=== PATIENT | female | born 1980 | race African-American/Black ===

== ENCOUNTER 2021-07-22 22:10 | Inpatient (IN) | payer OTHER ==
[~2021-07-22] VITALS: Ht 165.1 cm; Wt 120.4 kg
[2021-07-22 22:00] VITALS: BP 114/97
[2021-07-22 22:15] VITALS: BP 144/95
[2021-07-22 22:30] VITALS: BP 147/96
[2021-07-22 22:45] VITALS: BP 135/83
--- NOTE | 2021-07-22 23:00 | NUR ---
Patient admitted to room 113, placed on ICU monitors. Patient currently has insulin gtt going at 6 units. Unable to retrieve glucose via glucometer. Labs orders placed. Notified Dr. Eden of admit, orders received. Patient comfortable at this time.
[2021-07-22 23:28] LABS: CREATININE 2.1 mg/dL (0.6-1.0); GFR 31.4; MAGNESIUM 3.7 mg/dL (1.8-2.4); PHOSPHORUS 4.3 mg/dL (2.6-4.7); POTASSIUM 4.8 mmol/L (3.5-5.1)
[2021-07-22 23:30] LABS: CALCIUM 12.1 mg/dL (8.5-10.1)
[2021-07-23] VITALS (18 sets, daily range): BP systolic 118–171; BP diastolic 71–116
[2021-07-23] MEDS ORDERED: SODIUM PHOSPHATE 10 MMOL in IV NORMAL SALINE 100ML 250 ML IV PRN
[2021-07-23] MEDS ORDERED: SODIUM PHOSPHATE 20 MMOL in IV NORMAL SALINE 250ML 250 ML IV PRN
[2021-07-23] MEDS ORDERED: fentaNYL PF VIAL 100 MCG/2 ML VIAL IVP PRN
[2021-07-23] MEDS ORDERED: guaiFENesin DM 200MG/20MG 10 ML SYRUP PO PRN
[2021-07-23] MEDS ORDERED: INSULIN REGULAR VIAL 100 UNIT in IV NORMAL SALINE 100ML 100 ML IV PRN
[2021-07-23] MEDS ORDERED: IV NORMAL SALINE 1000ML BAG 1,000 ML IV SCH
[2021-07-23] MEDS ORDERED: SODIUM PHOSPHATE 40 MMOL in IV NORMAL SALINE 500ML BAG 500 ML IV PRN
[2021-07-23] MEDS ORDERED: traMADol 50 MG TABLET PO PRN
[2021-07-23] MEDS ORDERED: POTASSIUM CHLORIDE 10MEQ 100 ML IV PRN ×2
[2021-07-23] MEDS: POTASSIUM CHLORIDE 10MEQ 100 ML IV PRN ×2 (00:14→01:26)
[2021-07-23 05:08] LABS: CALCIUM 11.5 mg/dL (8.5-10.1); CREATININE 2.3 mg/dL (0.6-1.0); GFR 28.3; MAGNESIUM 3.4 mg/dL (1.8-2.4); PHOSPHORUS 1.9 mg/dL (2.6-4.7); POTASSIUM 3.6 mmol/L (3.5-5.1)
[2021-07-23 05:21] LABS: HEMATOCRIT 46.1 % (36.0-47.0); HEMOGLOBIN 15.4 g/dL (12.0-15.5); RED BLOOD COUNT 5.62 x10^6/uL (3.50-5.40); WHITE BLOOD COUNT 13.9 x10^3/uL (4.0-11.0)
[2021-07-23] MEDS ORDERED: IV 1/2 NORMAL SALINE 1,000 ML IV SCH ×2 (05:30)
[2021-07-23] MEDS: POTASSIUM PHOS,M-BASIC-D-BASIC 13.6 MMOL in IV NORMAL SALINE 250ML 250 ML IV SCH ×2 (05:36→10:00)
[2021-07-23] MEDS: HEPARIN for SUB-Q USE 5,000 UNIT/ML VIAL. SQ SCH ×3 (05:42→20:42)
[2021-07-23] MEDS ORDERED: INSULIN GLARGINE SYRINGE. SQ ONE (07:00)
[2021-07-23] MEDS ORDERED: INSULIN LISPRO 300 UNITS/3 ML VIAL. SQ ONE ×4 (07:00→20:30)
[2021-07-23] MEDS ORDERED: ONDANSETRON PF 4 MG/2 ML VIAL. IVP PRN ×2 (07:45)
[2021-07-23] MEDS ORDERED: MAG HYDROX/ALUMINUM HYD/SIMETH 30 ML ORAL.SUSP PO PRN (07:45)
[2021-07-23] MEDS ORDERED: IV DEXTROSE 5% 250 ML BAG. IV PRN (07:45)
[2021-07-23] MEDS ORDERED: 0.9 % SODIUM CHLORIDE 10 ML DISP.SYRIN. IV PRN (07:45)
[2021-07-23] MEDS ORDERED: DEXTROSE 50% 25 GM / 50ML DISP.SYRIN. IV PRN (07:45)
[2021-07-23] MEDS ORDERED: CALCIUM CARBONATE 500 MG TAB.CHEW PO PRN (07:45)
[2021-07-23] MEDS ORDERED: ACETAMINOPHEN 325 MG TABLET. PO PRN ×2 (07:45)
[2021-07-23] MEDS ORDERED: HYDROcodone/APAP 5/325MG 1 TAB TABLET PO PRN (07:45)
[2021-07-23] MEDS ORDERED: ZOLPIDEM 5 MG TABLET. PO PRN (07:45)
[2021-07-23] MEDS ORDERED: MAGNESIUM HYDROXIDE 2,400 MG/30 ML ORAL.SUSP. PO PRN (07:45)
--- NOTE | 2021-07-23 07:46 | PDOC1 ---
History and Physical Date of Admission Date of Admission DATE: 07/23/21 TIME: 07:38 Identification/Chief Complaint Chief Complaint Elevated blood sugar Source Source: Patient History of Present Illness History of Present Illness Patient is a 40-year-old female with no stated past medical history who presents to the ED as a transfer from [facility] due to DKA. She reports nausea yesterday with an episode of vomiting. When she checked her blood sugar at her parents house their home glucometer read high, so she presented to [facility] ED. At [facility] ED her blood sugar was 1617. She was placed on insulin drip and transferred to [facility] for higher level of care. At [facility] her labs showed WBC 10.6, hemoglobin 15.6, hematocrit 50.4, potassium 7.0, sodium 128, BUN 22, creatinine 2.1, anion gap 16. Now at [facility] in the ICU CBG is now 359, BUN 24, creatinine 2.3. Will admit patient for further medical management. Past Medical History Past Medical History Reviewed with patient but no stated past medical history Past Surgical History Past Surgical History: No pertinent history Family History Family History: Cancer, Diabetes, Hypertension Social History Smoke: No ALCOHOL: rare Drugs: None Current Medications Current Medications Current Medications Sodium Chloride 1,000 ml @ 500 mls/hr Q2H IV Last administered on 07/22/21at 23:54; Start 07/23/21 at 00:00; Stop 07/23/21 at 01:59; Status DC Sodium Chloride 1,000 ml @ 250 mls/hr Q4H IV Last administered on 07/23/21at 01:56; Start 07/23/21 at 00:00; Stop 07/23/21 at 05:20; Status DC Insulin Human Regular 100 unit/ Sodium Chloride 101 ml @ 0 mls/hr CONT PRN PRN IV PER PROTOCOL Last administered on 07/23/21at 02:19; Start 07/23/21 at 00:00 Potassium Chloride/Water 100 ml @ 100 mls/hr PRN Q1HR PRN IV SEE COMMENTS Last administered on 07/23/21at 01:26; Start 07/23/21 at 00:00 Potassium Chloride/Water 100 ml @ 100 mls/hr PRN Q1HR PRN IV SEE COMMENTS; Start 07/23/21 at 00:00 Potassium Chloride/Water 100 ml @ 100 mls/hr PRN Q1HR PRN IV SEE COMMENTS; Start 07/23/21 at 00:00 Magnesium Sulfate 100 ml @ 25 mls/hr DAILY IV ; Start 07/23/21 at 09:00; Stop 07/26/21 at 08:59 Sodium Phosphate 40 mmol/Sodium Chloride 513.3333 ml @ 83.3 mls/hr 1X PRN PRN IV SEE COMMENTS; Start 07/23/21 at 00:00 Sodium Phosphate 20 mmol/Sodium Chloride 256.6667 ml @ 62.5 mls/hr 1X PRN PRN IV SEE COMMENTS; Start 07/23/21 at 00:00 Sodium Phosphate 10 mmol/Sodium Chloride 253.3333 ml @ 25 mls/hr 1X PRN PRN IV SEE COMMENTS; Start 07/23/21 at 00:00 Acetaminophen (Tylenol) 650 mg PRN Q6HRS PRN PO MILD PAIN / TEMP > 100.3'F; Start 07/23/21 at 00:00 Ondansetron HCl (Zofran) 4 mg PRN Q4HRS PRN IVP NAUSEA/VOMITING 1ST CHOICE; Start 07/23/21 at 00:00 Tramadol HCl (Ultram) 50 mg PRN Q6HRS PRN PO MODERATE PAIN 4-6; Start 07/23/21 at 00:00 Fentanyl Citrate (Fentanyl 2ml Vial) 25 mcg PRN Q3HRS PRN IVP SEVERE PAIN 7-10; Start 07/23/21 at 00:00 Heparin Sodium (Porcine) (Heparin Sodium) 5,000 unit Q8HRS SQ Last administered on 07/23/21at 05:42; Start 07/23/21 at 06:00 Guaifenesin (Robitussin Dm) 10 ml PRN Q6HRS PRN PO COUGH; Start 07/23/21 at 00:00 Sodium Chloride 1,000 ml @ 250 mls/hr Q4H IV Last administered on 07/23/21at 05:31; Start 07/23/21 at 05:30 Potassium Phosphate 13.6 mmol/Sodium Chloride 254.5333 ml @ 62.5 mls/hr Q4H IV Last administered on 07/23/21at 05:36; Start 07/23/21 at 06:00; Stop 07/23/21 at 13:59 Insulin Glargine (Lantus Syringe) 25 unit 1X ONCE SQ Last administered on 07/23/21at 06:42; Start 07/23/21 at 07:00; Stop 07/23/21 at 07:01; Status DC Insulin Human Lispro (HumaLOG) 17 units 1X ONCE SQ ; Start 07/23/21 at 07:00; Stop 07/23/21 at 07:01; Status DC Allergies Allergies: Coded Allergies: No Known Drug Allergies (Unverified , 07/22/21) ROS Review of System GENERAL: No history of weight change, weakness or fevers. SKIN: No bruising, hair changes or rashes. EYES: No blurred, double or loss of vision. NOSE AND THROAT: No history of nosebleeds, hoarseness or sore throat. HEART: Denies chest pain, denies palpitations. LUNGS: Denies cough, hemoptysis, wheezing or shortness of breath. GASTROINTESTINAL: Nausea and vomiting. Denies abdominal pain. GENITOURINARY: Denies dysuria, frequency, urgency, hematuria. NEUROLOGIC: Denies history of numbness, tingling, tremor or weakness. PSYCHIATRIC: Denies anxiety, denies depression. ENDOCRINE: No history of heat or cold intolerance, polyuria or polydipsia. EXTREMITIES: Denies muscle weakness, joint pain, pain on walking or stiffness. Physical Exam Physical Exam General: Alert, Oriented X3, Cooperative, No acute distress. Morbidly obese. HEENT: PERRLA, EOMI Lungs: Clear to auscultation, Normal air movement Heart: Tachycardic. No murmurs Cardiovascular: S1, S2 Abdomen: Normal bowel sounds, Soft, No tenderness Extremities: No clubbing, No cyanosis Skin: No rashes, No significant lesion Neuro: Normal speech, Normal tone, Sensation intact Psych/Mental Status: Mental status NL, Mood NL Vitals Vitals Vital Signs Date Time Temp Pulse Resp B/P (MAP) Pulse Ox O2 Delivery O2 Flow Rate FiO2 07/23/21 06:00 102 20 137/94 (108) 98 Room Air 07/23/21 04:00 98.9 98.9 Labs Labs Laboratory Tests Test 07/22/21 23:05 07/23/21 00:55 07/23/21 02:30 07/23/21 04:10 Sodium Level 137 mmol/L (136-145) 150 mmol/L (136-145) Potassium Level 4.8 mmol/L (3.5-5.1) 3.6 mmol/L (3.5-5.1) Chloride Level 97 mmol/L (98-107) 110 mmol/L (98-107) Carbon Dioxide Level 26 mmol/L (21-32) 27 mmol/L (21-32) Anion Gap 14 (6-14) 13 (6-14) Blood Urea Nitrogen 23 mg/dL (7-20) 24 mg/dL (7-20) Creatinine 2.1 mg/dL (0.6-1.0) 2.3 mg/dL (0.6-1.0) Estimated GFR (Cockcroft-Gault) 31.4 28.3 Glucose Level 1154 mg/dL (70-99) 943 mg/dL (70-99) 727 mg/dL (70-99) 587 mg/dL (70-99) Calcium Level 12.1 mg/dL (8.5-10.1) 11.5 mg/dL (8.5-10.1) Phosphorus Level 4.3 mg/dL (2.6-4.7) 1.9 mg/dL (2.6-4.7) Magnesium Level 3.7 mg/dL (1.8-2.4) 3.4 mg/dL (1.8-2.4) White Blood Count 13.9 x10^3/uL (4.0-11.0) Red Blood Count 5.62 x10^6/uL (3.50-5.40) Hemoglobin 15.4 g/dL (12.0-15.5) Hematocrit 46.1 % (36.0-47.0) Mean Corpuscular Volume 82 fL (79-100) Mean Corpuscular Hemoglobin 28 pg (25-35) Mean Corpuscular Hemoglobin Concent 33 g/dL (31-37) Red Cell Distribution Width 13.0 % (11.5-14.5) Platelet Count 212 x10^3/uL (140-400) Test 07/23/21 06:15 07/23/21 07:19 Glucose (Fingerstick) 413 mg/dL (70-99) 359 mg/dL (70-99) Laboratory Tests Test 07/22/21 23:05 07/23/21 00:55 07/23/21 02:30 07/23/21 04:10 Sodium Level 137 mmol/L (136-145) 150 mmol/L (136-145) Potassium Level 4.8 mmol/L (3.5-5.1) 3.6 mmol/L (3.5-5.1) Chloride Level 97 mmol/L (98-107) 110 mmol/L (98-107) Carbon Dioxide Level 26 mmol/L (21-32) 27 mmol/L (21-32) Anion Gap 14 (6-14) 13 (6-14) Blood Urea Nitrogen 23 mg/dL (7-20) 24 mg/dL (7-20) Creatinine 2.1 mg/dL (0.6-1.0) 2.3 mg/dL (0.6-1.0) Estimated GFR (Cockcroft-Gault) 31.4 28.3 Glucose Level 1154 mg/dL (70-99) 943 mg/dL (70-99) 727 mg/dL (70-99) 587 mg/dL (70-99) Calcium Level 12.1 mg/dL (8.5-10.1) 11.5 mg/dL (8.5-10.1) Phosphorus Level 4.3 mg/dL (2.6-4.7) 1.9 mg/dL (2.6-4.7) Magnesium Level 3.7 mg/dL (1.8-2.4) 3.4 mg/dL (1.8-2.4) White Blood Count 13.9 x10^3/uL (4.0-11.0) Red Blood Count 5.62 x10^6/uL (3.50-5.40) Hemoglobin 15.4 g/dL (12.0-15.5) Hematocrit 46.1 % (36.0-47.0) Mean Corpuscular Volume 82 fL (79-100) Mean Corpuscular Hemoglobin 28 pg (25-35) Mean Corpuscular Hemoglobin Concent 33 g/dL (31-37) Red Cell Distribution Width 13.0 % (11.5-14.5) Platelet Count 212 x10^3/uL (140-400) Test 07/23/21 06:15 07/23/21 07:19 Glucose (Fingerstick) 413 mg/dL (70-99) 359 mg/dL (70-99) VTE Prophylaxis Ordered VTE Prophylaxis Devices: Yes VTE Pharmacological Prophylaxi: No Assessment/Plan Assessment/Plan DKA New onset type 2 diabetes LETY Plan: Patient's blood sugar is within normal range, no acidosis. She has been transitioned to subcutaneous insulin in the discharge of the ICU Hemoglobin A1c pending We will continue normal saline due to level of dehydration and LETY FEN - ADA diet PPX - SCD FULL CODE Dispo - inpatient for above Justifications for Admission Other Justification HENNY GUZMAN MD Jul 23, 2021 07:46
[2021-07-23] MEDS: INSULIN LISPRO 300 UNITS/3 ML VIAL. SQ SCH ×3 (08:00→17:06)
[2021-07-23] MEDS: ELECTROLYTE (ICU) PROTOCOL. MC SCH (09:00)
[2021-07-23] MEDS ORDERED: MAGNESIUM SULFATE 4GM 100 ML IV SCH (09:00)
--- NOTE | 2021-07-23 09:47 | RAD ---
US RENAL BILAT History: Acute kidney injury. Comparison: None. Technique: Sonographic examination of the kidneys and bladder. Findings: Right kidney: 10.0 cm length. No focal lesion, calculi or hydronephrosis. Left kidney: 9.6 cm length. No focal lesion, calculi or hydronephrosis. Bladder: No distal ureterectasis. No focal wall abnormality. Aorta/IVC: Visualized portions are unremarkable. Other: No ascites. Impression: 1. Unremarkable renal bladder ultrasound. Electronically signed by: Teo Garcia MD (07/23/2021 9:44 AM) [id number]
[2021-07-23] MEDS: IV 1/2 NORMAL SALINE 1,000 ML IV SCH ×2 (10:00→18:07)
[2021-07-23] MEDS ORDERED: INSULIN LISPRO 300 UNITS/3 ML VIAL. SQ SCH (12:45)
[2021-07-23 18:01] LABS: CALCIUM 9.5 mg/dL (8.5-10.1); CREATININE 1.7 mg/dL (0.6-1.0); GFR 40.1; MAGNESIUM 2.4 mg/dL (1.8-2.4); PHOSPHORUS 4.9 mg/dL (2.6-4.7); POTASSIUM 3.6 mmol/L (3.5-5.1)
[2021-07-23] MEDS ORDERED: LOSARTAN POTASSIUM 25 MG TABLET. PO SCH (20:30)
[2021-07-23] MEDS ORDERED: INSULIN GLARGINE SYRINGE. SQ SCH ×3 (21:00)
[2021-07-24] VITALS: BP 118/68
[2021-07-24 00:13] LABS: HEMOGLOBIN A1C 10.8 % (4.8-5.6)
[2021-07-24 04:00] VITALS: BP 128/81
[2021-07-24 05:27] LABS: BASO # 0.1 x10^3/uL (0.0-0.2); BASO % 1 % (0-3); EOS # 0.1 x10^3/uL (0.0-0.7); EOS % 1 % (0-3); HEMATOCRIT 39.4 % (36.0-47.0); HEMOGLOBIN 12.8 g/dL (12.0-15.5); LYMPH # 2.4 x10^3/uL (1.0-4.8); LYMPH % 25 % (24-48); MEAN CORPUSCULAR HEMOGLOBIN 27 pg (25-35); MEAN CORPUSCULAR HGB CONC 33 g/dL (31-37); MEAN CORPUSCULAR VOLUME 83 fL (79-100); MONO # 0.5 x10^3/uL (0.0-1.1); MONO % 6 % (0-9); NEUT # 6.3 x10^3/uL (1.8-7.7); NEUT % 68 % (31-73); PLATELET COUNT 170 x10^3/uL (140-400); RED BLOOD COUNT 4.74 x10^6/uL (3.50-5.40); WHITE BLOOD COUNT 9.4 x10^3/uL (4.0-11.0)
[2021-07-24 06:17] LABS: ALBUMIN 3.2 g/dL (3.4-5.0); ALBUMIN/GLOBULIN RATIO 0.9 (1.0-1.7); CALCIUM 8.7 mg/dL (8.5-10.1); CREATININE 1.2 mg/dL (0.6-1.0); GFR 59.9; POTASSIUM 3.4 mmol/L (3.5-5.1); TOTAL BILIRUBIN 1.6 mg/dL (0.2-1.0); TOTAL PROTEIN 6.7 g/dL (6.4-8.2)
[2021-07-24] MEDS: HEPARIN for SUB-Q USE 5,000 UNIT/ML VIAL. SQ SCH ×3 (06:27→20:40)
[2021-07-24] MEDS ORDERED: INSULIN LISPRO 300 UNITS/3 ML VIAL. SQ ONE (07:00)
[2021-07-24] MEDS ORDERED: POTASSIUM CHLORIDE 20 MEQ TABLET.ER. PO ONE (07:30)
[2021-07-24] MEDS: IV 1/2 NORMAL SALINE 1,000 ML IV SCH ×2 (07:41→13:40)
[2021-07-24] MEDS: INSULIN LISPRO 300 UNITS/3 ML VIAL. SQ SCH ×3 (07:43→16:53)
[2021-07-24 08:00] VITALS: BP 122/76
[2021-07-24] MEDS: ELECTROLYTE (ICU) PROTOCOL. MC SCH (09:00)
[2021-07-24] MEDS: INSULIN GLARGINE SYRINGE. SQ SCH ×2 (09:33→20:43)
[2021-07-24 11:52] VITALS: BP 115/84
--- NOTE | 2021-07-24 13:07 | PDOC ---
[employer] PROGRESS NOTE Date of Service DOS: DATE: 07/24/21 TIME: 13:05 Chief Complaint Chief Complaint DKA New onset type 2 diabetes LETY History of Present Illness History of Present Illness 07/24: Patient evaluated in ICU. Off insulin drip and she may downgrade. Kidney function improving; still with hyperglycemia. She has appointment with her new PCP on Wednesday. I imagine she will discharge tomorrow after better control of her insulin and continue with IV fluids to improve her kidneys. After discussion with patient, she would like to try to lower her A1c with oral medications and diet before switching to insulin if this is not effective. She will likely discharge on Metformin, Jardiance, atorvastatin, and losartan. Discussed with RN. Vitals/I&O Vitals/I&O: Vital Signs Date Time Temp Pulse Resp B/P (MAP) Pulse Ox O2 Delivery O2 Flow Rate FiO2 07/24/21 11:52 97.9 81 14 115/84 (94) 96 Room Air 97.9 I & O 07/23/21 07/23/21 07/24/21 15:00 23:00 07:00 Intake Total 3590 ml 2070 ml 1251 ml Output Total 0 ml 450 ml 400 ml Balance 3590 ml 1620 ml 851 ml Physical Exam General: Alert, Oriented X3, Cooperative, No acute distress Heart: Regular rate Lungs: Clear Abdomen: Normal bowel sounds, Soft Extremities: No clubbing, No cyanosis Skin: No rashes, No breakdown Labs Labs: Laboratory Tests Test 07/23/21 15:52 07/23/21 17:03 07/23/21 17:42 07/23/21 20:28 Glucose (Fingerstick) 310 mg/dL (70-99) 241 mg/dL (70-99) 203 mg/dL (70-99) Sodium Level 144 mmol/L (136-145) Potassium Level 3.6 mmol/L (3.5-5.1) Chloride Level 107 mmol/L (98-107) Carbon Dioxide Level 28 mmol/L (21-32) Anion Gap 9 (6-14) Blood Urea Nitrogen 24 mg/dL (7-20) Creatinine 1.7 mg/dL (0.6-1.0) Estimated GFR (Cockcroft-Gault) 40.1 Glucose Level 260 mg/dL (70-99) Calcium Level 9.5 mg/dL (8.5-10.1) Phosphorus Level 4.9 mg/dL (2.6-4.7) Magnesium Level 2.4 mg/dL (1.8-2.4) Test 07/24/21 04:47 07/24/21 05:00 07/24/21 11:42 Glucose (Fingerstick) 267 mg/dL (70-99) 301 mg/dL (70-99) White Blood Count 9.4 x10^3/uL (4.0-11.0) Red Blood Count 4.74 x10^6/uL (3.50-5.40) Hemoglobin 12.8 g/dL (12.0-15.5) Hematocrit 39.4 % (36.0-47.0) Mean Corpuscular Volume 83 fL (79-100) Mean Corpuscular Hemoglobin 27 pg (25-35) Mean Corpuscular Hemoglobin Concent 33 g/dL (31-37) Red Cell Distribution Width 13.0 % (11.5-14.5) Platelet Count 170 x10^3/uL (140-400) Neutrophils (%) (Auto) 68 % (31-73) Lymphocytes (%) (Auto) 25 % (24-48) Monocytes (%) (Auto) 6 % (0-9) Eosinophils (%) (Auto) 1 % (0-3) Basophils (%) (Auto) 1 % (0-3) Neutrophils # (Auto) 6.3 x10^3/uL (1.8-7.7) Lymphocytes # (Auto) 2.4 x10^3/uL (1.0-4.8) Monocytes # (Auto) 0.5 x10^3/uL (0.0-1.1) Eosinophils # (Auto) 0.1 x10^3/uL (0.0-0.7) Basophils # (Auto) 0.1 x10^3/uL (0.0-0.2) Sodium Level 144 mmol/L (136-145) Potassium Level 3.4 mmol/L (3.5-5.1) Chloride Level 105 mmol/L (98-107) Carbon Dioxide Level 29 mmol/L (21-32) Anion Gap 10 (6-14) Blood Urea Nitrogen 17 mg/dL (7-20) Creatinine 1.2 mg/dL (0.6-1.0) Estimated GFR (Cockcroft-Gault) 59.9 BUN/Creatinine Ratio 14 (6-20) Glucose Level 306 mg/dL (70-99) Calcium Level 8.7 mg/dL (8.5-10.1) Total Bilirubin 1.6 mg/dL (0.2-1.0) Aspartate Amino Transf (AST/SGOT) 44 U/L (15-37) Alanine Aminotransferase (ALT/SGPT) 34 U/L (14-59) Alkaline Phosphatase 69 U/L (46-116) Total Protein 6.7 g/dL (6.4-8.2) Albumin 3.2 g/dL (3.4-5.0) Albumin/Globulin Ratio 0.9 (1.0-1.7) Triglycerides Level 381 mg/dL (0-150) Cholesterol Level 252 mg/dL (0-200) LDL Cholesterol, Calculated 134 mg/dL (0-100) VLDL Cholesterol, Calculated 76 mg/dL (0-40) Non-HDL Cholesterol Calculated 210 mg/dL (0-129) HDL Cholesterol 42 mg/dL (40-60) Cholesterol/HDL Ratio 6.0 Comment Review of Relevant I have reviewed the following items nacho (where applicable) has been applied. Medications: Current Medications Medications (Trade) Dose Ordered Sig/Amadou Route PRN Reason Start Time Stop Time Status Last Admin Dose Admin Insulin Glargine (Lantus Syringe) 30 unit QHS SQ 07/23/21 21:00 07/24/21 07:27 DC 07/23/21 20:41 Losartan Potassium (Cozaar) 25 mg DAILY PO 07/23/21 20:30 07/24/21 07:28 DC 07/23/21 20:40 Insulin Human Lispro (HumaLOG) 10 units 1X ONCE SQ 07/23/21 20:30 07/23/21 20:31 DC 07/23/21 20:42 Insulin Human Lispro (HumaLOG) 5 units 1X ONCE SQ 07/24/21 07:00 07/24/21 07:01 DC 07/24/21 07:43 Potassium Chloride (Klor-Con) 40 meq 1X ONCE PO 07/24/21 07:30 07/24/21 07:33 DC 07/24/21 07:40 Insulin Glargine (Lantus Syringe) 30 unit BID SQ 07/24/21 09:00 07/24/21 09:33 Justifications for Admission Other Justification HENNY GUZMAN MD Jul 24, 2021 13:07
[2021-07-24 16:00] VITALS: BP 115/65
--- NOTE | 2021-07-24 16:39 | NUR ---
SS following for discharge planning. SS reviewed pt chart and discussed with RN. Pt is from home and is currently on room air. Self pay. Med [facility]ist following. Discharge plan is currently to home when medically ready for discharge. SS will continue to follow for discharge planning.
[2021-07-24 20:00] VITALS: BP 124/85
[2021-07-24] MEDS ORDERED: ATORVASTATIN CALCIUM 40 MG TABLET. PO SCH (21:00)
[2021-07-25] VITALS: BP 125/76
[2021-07-25 04:00] VITALS: BP 122/76
[2021-07-25] MEDS: IV 1/2 NORMAL SALINE 1,000 ML IV SCH (04:29)
[2021-07-25 05:06] LABS: CALCIUM 8.7 mg/dL (8.5-10.1); CREATININE 0.9 mg/dL (0.6-1.0); GFR 83.5; POTASSIUM 3.7 mmol/L (3.5-5.1)
[2021-07-25] MEDS: HEPARIN for SUB-Q USE 5,000 UNIT/ML VIAL. SQ SCH (06:20)
[2021-07-25 08:00] VITALS: BP 128/72
[2021-07-25] MEDS: INSULIN LISPRO 300 UNITS/3 ML VIAL. SQ SCH (09:15)
[2021-07-25] MEDS: INSULIN GLARGINE SYRINGE. SQ SCH (09:16)
[2021-07-25 12:00] VITALS: BP 132/76
--- NOTE | 2021-07-25 12:43 | PDOC ---
[employer] PROGRESS NOTE Date of Service DOS: DATE: 07/25/21 TIME: 12:42 Chief Complaint Chief Complaint DKA New onset type 2 diabetes LETY History of Present Illness History of Present Illness 07/24: Patient evaluated in ICU. Off insulin drip and she may downgrade. Kidney function improving; still with hyperglycemia. She has appointment with her new PCP on Wednesday. I imagine she will discharge tomorrow after better control of her insulin and continue with IV fluids to improve her kidneys. After discussion with patient, she would like to try to lower her A1c with oral medications and diet before switching to insulin if this is not effective. She will likely discharge on Metformin, Jardiance, atorvastatin, and losartan. Discussed with RN. 07/25: Patient seen in ICU. She has no complaints today. Kidney function back to baseline. She will discharge home today and follow-up with her PCP on Wednesday . Greater than 30 minutes spent managing the discharge of this patient. Vitals/I&O Vitals/I&O: Vital Signs Date Time Temp Pulse Resp B/P (MAP) Pulse Ox O2 Delivery O2 Flow Rate FiO2 07/25/21 04:00 98.8 72 16 122/76 (91) 95 Room Air 98.8 I & O 07/24/21 07/24/21 07/25/21 15:00 23:00 07:00 Intake Total 1200 ml 1992 ml 1666 ml Output Total 500 ml 450 ml Balance 700 ml 1542 ml 1666 ml Physical Exam General: Alert, Oriented X3, Cooperative, No acute distress Heart: Regular rate Lungs: Clear Abdomen: Normal bowel sounds, Soft Extremities: No clubbing, No cyanosis Skin: No rashes, No breakdown Labs Labs: Laboratory Tests Test 07/24/21 16:50 07/24/21 20:42 07/25/21 03:45 Glucose (Fingerstick) 215 mg/dL (70-99) 288 mg/dL (70-99) Sodium Level 140 mmol/L (136-145) Potassium Level 3.7 mmol/L (3.5-5.1) Chloride Level 105 mmol/L (98-107) Carbon Dioxide Level 28 mmol/L (21-32) Anion Gap 7 (6-14) Blood Urea Nitrogen 13 mg/dL (7-20) Creatinine 0.9 mg/dL (0.6-1.0) Estimated GFR (Cockcroft-Gault) 83.5 Glucose Level 276 mg/dL (70-99) Calcium Level 8.7 mg/dL (8.5-10.1) Comment Review of Relevant I have reviewed the following items nacho (where applicable) has been applied. Medications: Current Medications Medications (Trade) Dose Ordered Sig/Amadou Route PRN Reason Start Time Stop Time Status Last Admin Dose Admin Atorvastatin Calcium (Lipitor) 40 mg QHS PO 07/24/21 21:00 07/24/21 20:37 Justifications for Admission Other Justification HENNY GUZMAN MD Jul 25, 2021 12:42
[2021-07-25] MEDS ORDERED: LOSA25TA54 PO (12:46)
[2021-07-25] MEDS ORDERED: METF500T16 PO (12:46)
[2021-07-25] MEDS ORDERED: EMPA25TA3 PO (12:46)
[2021-07-25] MEDS ORDERED: ATOR40TA59 PO (12:46)
--- NOTE | 2021-07-25 12:53 | PDOC3 ---
Discharge Summary Visit Information Date of Admission: Jul 23, 2021 Date of Discharge: Jul 25, 2021 Brief Hospital Course Allergies Allergies Coded Allergies Type Severity Reaction Last Updated Verified No Known Drug Allergies 07/22/21 No Vital Signs Vital Signs Date Time Temp Pulse Resp B/P (MAP) Pulse Ox O2 Delivery O2 Flow Rate FiO2 07/25/21 04:00 98.8 72 16 122/76 (91) 95 Room Air 98.8 Lab Results Laboratory Tests Test 07/23/21 15:52 07/23/21 17:03 07/23/21 17:42 07/23/21 20:28 Glucose (Fingerstick) 310 mg/dL (70-99) 241 mg/dL (70-99) 203 mg/dL (70-99) Sodium Level 144 mmol/L (136-145) Potassium Level 3.6 mmol/L (3.5-5.1) Chloride Level 107 mmol/L (98-107) Carbon Dioxide Level 28 mmol/L (21-32) Anion Gap 9 (6-14) Blood Urea Nitrogen 24 mg/dL (7-20) Creatinine 1.7 mg/dL (0.6-1.0) Estimated GFR (Cockcroft-Gault) 40.1 Glucose Level 260 mg/dL (70-99) Calcium Level 9.5 mg/dL (8.5-10.1) Phosphorus Level 4.9 mg/dL (2.6-4.7) Magnesium Level 2.4 mg/dL (1.8-2.4) Test 07/24/21 04:47 07/24/21 05:00 07/24/21 11:42 07/24/21 16:50 Glucose (Fingerstick) 267 mg/dL (70-99) 301 mg/dL (70-99) 215 mg/dL (70-99) White Blood Count 9.4 x10^3/uL (4.0-11.0) Red Blood Count 4.74 x10^6/uL (3.50-5.40) Hemoglobin 12.8 g/dL (12.0-15.5) Hematocrit 39.4 % (36.0-47.0) Mean Corpuscular Volume 83 fL (79-100) Mean Corpuscular Hemoglobin 27 pg (25-35) Mean Corpuscular Hemoglobin Concent 33 g/dL (31-37) Red Cell Distribution Width 13.0 % (11.5-14.5) Platelet Count 170 x10^3/uL (140-400) Neutrophils (%) (Auto) 68 % (31-73) Lymphocytes (%) (Auto) 25 % (24-48) Monocytes (%) (Auto) 6 % (0-9) Eosinophils (%) (Auto) 1 % (0-3) Basophils (%) (Auto) 1 % (0-3) Neutrophils # (Auto) 6.3 x10^3/uL (1.8-7.7) Lymphocytes # (Auto) 2.4 x10^3/uL (1.0-4.8) Monocytes # (Auto) 0.5 x10^3/uL (0.0-1.1) Eosinophils # (Auto) 0.1 x10^3/uL (0.0-0.7) Basophils # (Auto) 0.1 x10^3/uL (0.0-0.2) Sodium Level 144 mmol/L (136-145) Potassium Level 3.4 mmol/L (3.5-5.1) Chloride Level 105 mmol/L (98-107) Carbon Dioxide Level 29 mmol/L (21-32) Anion Gap 10 (6-14) Blood Urea Nitrogen 17 mg/dL (7-20) Creatinine 1.2 mg/dL (0.6-1.0) Estimated GFR (Cockcroft-Gault) 59.9 BUN/Creatinine Ratio 14 (6-20) Glucose Level 306 mg/dL (70-99) Calcium Level 8.7 mg/dL (8.5-10.1) Total Bilirubin 1.6 mg/dL (0.2-1.0) Aspartate Amino Transf (AST/SGOT) 44 U/L (15-37) Alanine Aminotransferase (ALT/SGPT) 34 U/L (14-59) Alkaline Phosphatase 69 U/L (46-116) Total Protein 6.7 g/dL (6.4-8.2) Albumin 3.2 g/dL (3.4-5.0) Albumin/Globulin Ratio 0.9 (1.0-1.7) Triglycerides Level 381 mg/dL (0-150) Cholesterol Level 252 mg/dL (0-200) LDL Cholesterol, Calculated 134 mg/dL (0-100) VLDL Cholesterol, Calculated 76 mg/dL (0-40) Non-HDL Cholesterol Calculated 210 mg/dL (0-129) HDL Cholesterol 42 mg/dL (40-60) Cholesterol/HDL Ratio 6.0 Test 07/24/21 20:42 07/25/21 03:45 07/25/21 12:44 Glucose (Fingerstick) 288 mg/dL (70-99) 274 mg/dL (70-99) Sodium Level 140 mmol/L (136-145) Potassium Level 3.7 mmol/L (3.5-5.1) Chloride Level 105 mmol/L (98-107) Carbon Dioxide Level 28 mmol/L (21-32) Anion Gap 7 (6-14) Blood Urea Nitrogen 13 mg/dL (7-20) Creatinine 0.9 mg/dL (0.6-1.0) Estimated GFR (Cockcroft-Gault) 83.5 Glucose Level 276 mg/dL (70-99) Calcium Level 8.7 mg/dL (8.5-10.1) Laboratory Tests Test 07/24/21 16:50 07/24/21 20:42 07/25/21 03:45 07/25/21 12:44 Glucose (Fingerstick) 215 mg/dL (70-99) 288 mg/dL (70-99) 274 mg/dL (70-99) Sodium Level 140 mmol/L (136-145) Potassium Level 3.7 mmol/L (3.5-5.1) Chloride Level 105 mmol/L (98-107) Carbon Dioxide Level 28 mmol/L (21-32) Anion Gap 7 (6-14) Blood Urea Nitrogen 13 mg/dL (7-20) Creatinine 0.9 mg/dL (0.6-1.0) Estimated GFR (Cockcroft-Gault) 83.5 Glucose Level 276 mg/dL (70-99) Calcium Level 8.7 mg/dL (8.5-10.1) Brief Hospital Course Ms. Schmidt is a 40 old female who presented with DKA, new type 2 diabetes. She was treated with IV fluids and IV insulin in the ICU. She converted out of DKA rather quickly, but remained in the hospital until renal function improved back to baseline. Her hemoglobin A1c was 10.8. After discussion with patient's she opted to discharge home on Metformin and Jardiance, in order to give her the option of controlling her type 2 diabetes with oral medications, exercise, and lifestyle adjustments. She will also discharged on atorvastatin and losartan. She will follow up with her new PCP on Wednesday07/28/2021. Discharge Information Condition at Discharge: Improved Disposition/Orders: D/C to Home Scheduled Atorvastatin Calcium (Atorvastatin Calcium) 40 Mg Tablet, 40 MG PO QHS for HLD, #90 Ref 2 Prescribed by: HENNY GUZMAN MD on 07/25/21 1246 Empagliflozin (Jardiance) 25 Mg Tablet, 25 MG PO DAILY for Type 2 diabetes, #60 Ref 2 Prescribed by: HENNY GUZMAN MD on 07/25/21 1246 Losartan Potassium (Losartan Potassium ) 25 Mg Tablet, 25 MG PO DAILY for HYPERTENSION, #90 Ref 1 Prescribed by: HENNY GUZMAN MD on 07/25/21 1246 Metformin Hcl (Metformin Hcl) 500 Mg Tablet, 500 MG PO BIDWMEALS for ANTI- DIABETIC, #120 Ref 2 Prescribed by: HENNY GUZMAN MD on 07/25/21 1246 Justicifation of Admission Dx: Justifications for Admission: Justification of Admission Dx: Yes HENNY GUZMAN MD Jul 25, 2021 12:53
--- NOTE | 2021-07-25 15:16 | NUR ---
Pt was preparing for discharge around 1330. Pt's mother enters room. This nurse leaves the room to allow the pt to get dressed. When this nurse returns, the pt's mother informs this nurse that the pt's jacket and tank top are not present with the pt. This nurse searches the room and does not find any other belongings. The pt has on a shirt and lounge pants and has a duffel bag. The jacket + tank top are not in this bag. This nurse informs the charge nurse and they both look in the lost and found. The belongings are not in there. On admission, no jacket is documented. The charge nurse informs the pt and pt's mother of this. Pt mother is now agitated. This nurse informed supervisor tank house of situation and the supervisor tank house reports she has no knowledge of any clothing being found anywhere. The pt and pt's mother is informed of this. The mother is rude and raises her voice with this nurse. This nurse informs the mother that this nurse will continue to look for the jacket and tank top this afternoon and/or try to find out where it may be. The pt states that she is ready to leave and this nurse helps her into a wheelchair. Pt, pt's mother and this nurse get to the outpatient elevators and the pt's mother states she "is going to find a patient advocate." This nurse informs pt's mother that she is walking to outpatient surgery. This nurse tells pt mother that if she returns to this ICU then this nurse will continue to try to resolve. She states again "I am going to find a patient advocate." and goes into outpatient surgery. This nurse stays with the pt in the hallway. After several minutes the pt also goes into outpatient surgery. This nurse goes to the ICU waiting room and calls the charge nurse to request some assistance with the situation. The charge nurse informs this nurse that the KARIN Reich is coming to talk to the pt and pt's mother. Filomena sits down with the pt and asks her what is going on. The pt explains the situation. This nurse goes to outpatient surgery and gets the pt's mother. The pt's mother is rude and over-talking with Filomena. Filomena listens to pt and pt's mother and explains that she will do everything she can to fix the situation. She takes down their phone numbers. This nurse is able to wheel pt to the outpatient exit. This nurse assists pt to the car and pt enters car at [id number].
== END 2021-07-25 14:05 | disposition home or self-care (01) | DRG 637 ==
LOC: 1 WEST ICU 22:10
PROVIDERS: ADMIT Internal Medicine; ATTEND Internal Medicine
DX: E11.10 Type 2 diabetes mellitus with ketoacidosis without coma (principal); N17.0 Acute kidney failure with tubular necrosis; E78.5 Hyperlipidemia, unspecified; I10 Essential (primary) hypertension; Z79.84 Long term (current) use of oral hypoglycemic drugs; Z82.49 Family history of ischemic heart disease and other diseases of the circulatory system; Z83.3 Family history of diabetes mellitus; E86.0 Dehydration
CPT/HCPCS: 36415; 76770; 80048; 80053; 80061; 82947; 82962; 83036; 83735; 84100; 85025; 85027; J1644; J1815; J3480; J3490; J7030; J7050; G0378